=== PATIENT | male | born 1975 ===

== ENCOUNTER 2018-03-13 02:56 | Emergency (ER) | payer OTHER ==
[~2018-03-13] VITALS: Ht 175.3 cm; Wt 73.5 kg
[~2018-03-13 02:56] MED LIST: FOCALIN XR25 MG PO; LEVSIN/SL0.125 MG SL; PEPCID40 MG PO; TUSSEX COUGH S118 ML PO; TUSSIONEX PENNKI5 ML PO; ZITHROMAX500 MG PO; ZOFRAN ODT4 MG/UDTAB PO
[2018-03-13] MEDS ORDERED: ZANTAC300 MG (03:15)
[2018-03-13] MEDS ORDERED: NEXIUM 24HR20 MG (03:15)
[2018-03-13] MEDS ORDERED: ZOFRAN ODT4 MG PO (05:52)
== END 2018-03-13 06:27 | disposition home or self-care (01) ==
LOC: ER 02:56
DX: K29.70 Gastritis, unspecified, without bleeding (principal)